=== PATIENT | male | born 1945 | race Caucasian/White ===

== ENCOUNTER 2019-05-06 13:16 | Inpatient (IN) | payer MEDICARE ==
[~2019-05-06] VITALS: Ht 182.9 cm; Wt 107.2 kg
--- OUTSIDE RECORDS SUMMARY | 2019-05-06 13:18 | XMS REPORT ---
Author [facility] Address Unknown Phone Unavailable Care Team Providers Care Satellite Communications Engineer Name Role Phone Unavailable Unavailable Payers Payer Name Policy Type Policy Number Effective Date Expiration Date Problems This patient has no known problems. Allergies, Adverse Reactions, Alerts Allergy Name Allergy Type Status Severity Reaction(s) Onset Date Inactive Date Treating Clinician Comments No Known Allergies DA Active U 2019-05-03 00:00:00 Medications This patient has no known medications. Results Test Description Test Time Test Comments Text Results Atomic Results Result Comments BASIC METABOLIC PANEL 2019-05-03 13:15:00 SODIUM (test code=NA) 141 mmol/L 136-145 POTASSIUM (test code=K) 4.6 mmol/L 3.5-5.1 CHLORIDE (test code=CL) 114.0 mmol/L 98-107 CARBON DIOXIDE (test code=CO2) 15.0 mmol/L 21-32 ANION GAP (test code=GAP) 16.6 10-20 GLUCOSE (test code=GLU) 118 mg/dL 74-106 BLOOD UREA NITROGEN (test code=BUN) 93 mg/dL 7-18 GLOMERULAR FILTRATION RATE (test code=GFR) 24 mL/min >=60 Estimated GFR by using Modified MDRD formula.Chronic kidney disease is defined as either kidney damageor GFR <60 mL/min/1.73 m2 for >3 months. CREATININE (test code=CREAT) 2.60 mg/dL 0.7-1.3 BUN/CREATININE RATIO (test code=BUN/CREA) 35.8 10-20 CALCIUM (test code=CA) 8.9 mg/dL 8.5-10.1 BASIC METABOLIC [id number] 13:05:00* Test Item Value Reference Range Comments SODIUM (test code=NA) 141 mmol/L 136-145 POTASSIUM (test code=K) 4.6 mmol/L 3.5-5.1 CHLORIDE (test code=CL) 114.0 mmol/L 98-107 CARBON DIOXIDE (test code=CO2) mmol/L 21-32 ANION GAP (test code=GAP) 10-20 GLUCOSE (test code=GLU) mg/dL 74-106 BLOOD UREA NITROGEN (test code=BUN) mg/dL 7-18 GLOMERULAR FILTRATION RATE (test code=GFR) mL/min >=60 CREATININE (test code=CREAT) mg/dL 0.7-1.3 BUN/CREATININE RATIO (test code=BUN/CREA) 10-20 CALCIUM (test code=CA) mg/dL 8.5-10.1 CBC W/AUTO [id number] 12:50:00* Test Item Value Reference Range Comments WHITE BLOOD CELL (test code=WBC) 9.8 K/mm3 4.5-12.5 RED BLOOD CELL (test code=RBC) 3.47 mill/mm3 4.0-5.8 HEMOGLOBIN (test code=HGB) 9.3 gram/dL 13.0-17.5 HEMATOCRIT (test code=HCT) 31.1 % 42.0-52.0 MEAN CELL VOLUME (test code=MCV) 89.6 fL 80-98 MEAN CELL HGB (test code=MCH) 26.8 picogram 27.0-33.0 MEAN CELL HGB CONCETRATION (test code=MCHC) 29.9 gram/dL 33.0-36.0 RED CELL DISTRIBUTION WIDTH (test code=RDW) 15.6 % 11.6-16.2 RED CELL DISTRIBUTION WIDTH SD (test code=RDW-SD) 50.6 fL 37.0-51.0 PLATELET COUNT (test code=PLT) 411 K/mm3 150-450 MEAN PLATELET VOLUME (test code=MPV) 9.0 fL 6.7-11.0 NEUTROPHIL % (test code=NT%) 71.4 % 39.0-69.0 IMMATURE GRANULOCYTE % (test code=IG%) 0.3 % 0.0-5.0 LYMPHOCYTE % (test code=LY%) 20.7 % 25.0-55.0 MONOCYTE % (test code=MO%) 4.9 % 0.0-10.0 EOSINOPHIL % (test code=EO%) 2.3 % 0.0-5.0 BASOPHIL % (test code=BA%) 0.4 % 0.0-1.0 NUCLEATED RBC % (test code=NRBC%) 0.0 % 0-0 NEUTROPHIL # (test code=NT#) 6.99 K/mm3 1.8-7.7 IMMATURE GRANULOCYTE # (test code=IG#) 0.03 x10 3/uL 0-0.03 LYMPHOCYTE # (test code=LY#) 2.03 K/mm3 1.0-5.0 MONOCYTE # (test code=MO#) 0.48 K/mm3 0-0.8 EOSINOPHIL # (test code=EO#) 0.23 K/mm3 0.0-0.5 BASOPHIL # (test code=BA#) 0.04 K/mm3 0.0-0.2 NUCLEATED RBC # (test code=NRBC#) 0.00 K/mm3 0.0-0.1
[2019-05-06] MEDS ORDERED: AMPICILLIN SOD/SULBACTAM 3GM 100 ML IV ONE (14:00)
[2019-05-06] MEDS ORDERED: SODIUM CHLORIDE FLUSH 10 ML SYR INJ PRN (14:00)
[2019-05-06 14:15] LABS: BASOPHILS % 0.2 % (0.0-1.0); EOSINOPHILS # (AUTO) 0.1 (0.0-0.4); EOSINOPHILS % 0.5 % (0.0-6.0); HEMATOCRIT 30.9 % (38.2-49.6); HEMOGLOBIN 9.6 g/dL (14.0-18.0); LYMPHOCYTES # (AUTO) 0.9 (1.0-3.2); LYMPHOCYTES % 4.9 % (18.0-39.1); MEAN CORPUSCULAR HEMOGLOBIN 27.5 pg (28-32); MEAN CORPUSCULAR HGB CONC 31.1 g/dL (31-35); MEAN CORPUSCULAR VOLUME 88.5 fL (81-99); MONOCYTES # (AUTO) 0.4 (0.2-0.8); MONOCYTES % 2.5 % (4.4-11.3); NEUTROPHILS % 91.5 % (38.7-80.0); PLATELET COUNT 364 x10e3/uL (140-360); RED BLOOD COUNT 3.49 x10e6/uL (4.3-5.7); RED CELL DISTRIBUTION WIDTH 15.6 % (11.7-14.4)
[2019-05-06 14:33] LABS: ALBUMIN 3.1 g/dL (3.5-5.0); ALBUMIN/GLOBULIN RATIO 0.6 (0.8-2.0); ANION GAP 17.8 mmol/L (8-16); CREATININE, SERUM 2.09 mg/dL (0.72-1.25); POTASSIUM 3.8 mmol/L (3.5-5.1)
--- NOTE | 2019-05-06 15:18 | Diagnostic Imaging Report ---
EXAMINATION: FOOT TWO VIEWS BILATERAL INDICATION: Foot ulcer COMPARISON: None FINDINGS: Right foot: No acute fracture or dislocation. Alignment appears anatomic. No specific findings of osteomyelitis. Achilles enthesopathy, small plantar calcaneal spur. Mild scattered degenerative changes. Left foot: No acute fracture or dislocation. Alignment appears anatomic. No specific findings of osteomyelitis. Achilles enthesopathy, small plantar calcaneal spur. Mild scattered degenerative changes. IMPRESSION: No acute osseous injury. No specific radiographic evidence of osteomyelitis. Signed by: Luis Dahl MD on 05/06/2019 3:16 PM
[2019-05-06] MEDS: LINEZOLID 600 MG/D5W 300ML 300 ML IV SCH (18:07)
[2019-05-06] MEDS: CEFTRIAXONE SOD 1 GM/NS 50 ML 50 ML IV SCH (18:07)
[2019-05-06 19:00] LABS: INR 2.55; PROTHROMBIN TIME 29.4 seconds (11.9-14.5)
[2019-05-06 19:01] LABS: PARTIAL THROMBOPLASTIN TIME 47.5 seconds (23.8-35.5)
[2019-05-06] MEDS ORDERED: AMPICILLIN SOD/SULBACTAM 3GM 100 ML IV SCH (20:00)
[2019-05-06 22:12] LABS: BILIRUBIN,URINE NEGATIVE (NEGATIVE); CLARITY,URINE CLEAR (CLEAR); COLOR,URINE YELLOW (YELLOW); KETONES,URINE NEGATIVE (NEGATIVE); LEUKOCYTE ESTERASE ,URINE NEGATIVE (NEGATIVE); NITRITE,URINE NEGATIVE (NEGATIVE); PROTEIN,URINE DIPSTICK NEGATIVE (NEGATIVE); URINE UROBILINOGEN 0.2 mg/dL (0.2 - 1)
[2019-05-06 22:22] LABS: BACTERIA,URINE MODERATE /HPF; HYALINE CASTS 0-1 (0-1); RBC,URINE 0-5 /HPF (0-5)
--- NOTE | 2019-05-06 22:54 | Consultation ---
DATE OF CONSULTATION: HISTORY OF PRESENT ILLNESS: Mr. Norman is a 73-year-old, who has a history of bilateral lower extremities lymphedema, venous stasis ulcers. He has been followed by Wound Care. The patient comes in with redness and swelling of his legs bilateral with open wounds and open ulcers, which are oozing serosanguineous fluid. It has been getting progressively worse over the last few days. The patient went to the ER at [place]. He was sent home with oral antibiotic, but he is coming back here with worsening condition and white count 17.4. The patient is going to be admitted. PAST MEDICAL HISTORY: Obesity, bilateral lower extremities edema. He does have chronic kidney disease. He have diabetes mellitus. PAST SURGICAL HISTORY: Denies. ALLERGIES: NKA. SOCIAL HISTORY: There is no smoking, drug abuse, or alcohol abuse. FAMILY HISTORY: Otherwise hypertension. REVIEW OF SYSTEMS: At the present time HEENT negative, pulmonary negative, cardiac negative, negative. SKIN: There is no rash, except the lower extremities. EXTREMITIES: There are redness and pain in the lower extremity as well as oozing fluid from some superficial wound. LABORATORY DATA: Reviewed. His cultures are still pending. Sodium 139, potassium 3.8, creatinine of 2.09, total protein 8.3 with albumin to 5.2. His white count 17.45 with hemoglobin 9.6, and platelets 346. PHYSICAL EXAMINATION: GENERAL: He is currently alert, oriented, does not seem to be in acute distress. VITAL SIGNS: Stable, currently afebrile. HEENT: Normocephalic, not icteric. NECK: Supple. CHEST: Clear bilateral. HEART: S1, S2. No S3, S4, or murmur. ABDOMEN: Soft. Bowel sounds present. No tenderness. EXTREMITIES: Bilateral lower extremities, there is erythema, there is edema bilateral with open wound. Some of these ulcers are superficial. IMPRESSION: Bilateral lower extremity cellulitis, bilateral lower extremity lymphedema, venous stasis dermatitis with ulcers and infected; concerned about component of congestive heart failure. I would recommend to put the patient on probably [id number]. We would recommend to put the patient on Zyvox and Rocephin, thigh-high elastic stocking. Recheck CBC. Recheck Chem panel. Assess the patient for congestive heart failure and fluids overload. We will follow with you. MD MAI Pickens/ALLISON /[id number]
--- NOTE | 2019-05-07 | NUR ---
Pt repositioned in bed for comfort, no other needs at this time.
--- NOTE | 2019-05-07 03:33 | NUR ---
Pt repositioned in bed for comfort, no other needs at this time.
--- NOTE | 2019-05-07 06:20 | NUR ---
AM Labs drawn at this time, taken to lab for analysis.
[2019-05-07] MEDS: LINEZOLID 600 MG/D5W 300ML 300 ML IV SCH ×2 (06:22→16:49)
[2019-05-07 06:38] LABS: BASOPHILS % 0.2 % (0.0-1.0); EOSINOPHILS # (AUTO) 0.1 (0.0-0.4); EOSINOPHILS % 0.5 % (0.0-6.0); HEMATOCRIT 25.3 % (38.2-49.6); LYMPHOCYTES % 7.9 % (18.0-39.1); MEAN CORPUSCULAR HGB CONC 30.8 g/dL (31-35); MEAN CORPUSCULAR VOLUME 87.5 fL (81-99); MONOCYTES # (AUTO) 0.6 (0.2-0.8); MONOCYTES % 4.4 % (4.4-11.3); NEUTROPHILS # (AUTO) 10.9 (2.1-6.9); NEUTROPHILS % 86.5 % (38.7-80.0); PLATELET COUNT 300 x10e3/uL (140-360); RED BLOOD COUNT 2.89 x10e6/uL (4.3-5.7); RED CELL DISTRIBUTION WIDTH 15.4 % (11.7-14.4)
[2019-05-07 06:43] LABS: HEMOGLOBIN 7.8 g/dL (14.0-18.0)
[2019-05-07 06:57] LABS: ALBUMIN 2.5 g/dL (3.5-5.0); ALBUMIN/GLOBULIN RATIO 0.6 (0.8-2.0); ANION GAP 13.6 mmol/L (8-16); CALCIUM 8.1 mg/dL (8.4-10.2); CREATININE, SERUM 1.86 mg/dL (0.72-1.25); POTASSIUM 3.6 mmol/L (3.5-5.1)
[2019-05-07 07:07] LABS: PHOSPHORUS 2.7 MG/DL (2.3-4.7)
[2019-05-07 07:13] LABS: MAGNESIUM 1.1 MG/DL (1.3-2.1)
[2019-05-07] MEDS ORDERED: MAGNESIUM SULF 1GRAM/DEXTROSE 100 ML IV ONE ×2 (08:00→14:15)
[2019-05-07] MEDS ORDERED: XARELTO20 MG PO (12:09)
[2019-05-07] MEDS ORDERED: FUROSEMIDE40 MG PO (12:09)
[2019-05-07] MEDS ORDERED: CANDESARTAN CIL32 MG PO (12:09)
[2019-05-07] MEDS ORDERED: POTASSIUM CHLO20 ME1 PO (12:09)
[2019-05-07] MEDS ORDERED: ATORVASTATIN CA40 MG PO (12:09)
[2019-05-07] MEDS ORDERED: METOPROLOL SUC100 MG PO (12:09)
[2019-05-07] MEDS ORDERED: METFORMIN HCL500 M1 PO (12:09)
[2019-05-07 14:02] VITALS: BP 116/56
[2019-05-07 14:18] VITALS: BP 116/56
--- NOTE | 2019-05-07 14:20 | NUR ---
RECEIVED PATIENT FROM ER TO ROOM 284, PATIENT IS IN STABLE CONDITION. ADMISSION HISTORY AND INITIAL PHYSICAL ASSESSMENT COMPLETED AND DOCUMENTED. PATIENT ORIENTED TO ROOM AND POLICIES. CALL LIGHT WITHIN REACH. BED IN THE LOWEST POSITION.
[2019-05-07 14:27] VITALS: BP 116/56
[2019-05-07] MEDS ORDERED: NON-FORMULARY MEDICATION (Metoprolol Succinate 100 MG) PO SCH (15:00)
[2019-05-07] MEDS ORDERED: CANDESARTAN CILEXETIL 32 MG PO SCH (15:00)
[2019-05-07] MEDS ORDERED: RIVAROXABAN 20 MG TABLET PO SCH (15:00)
[2019-05-07] MEDS ORDERED: NON-FORMULARY MEDICATION (Atorvastatin Calcium 40 MG) PO SCH (15:00)
[2019-05-07] MEDS ORDERED: ONDANSETRON HCL INJ 2MG/ML 2ML 2 MG/ML VIAL IV PRN (15:15)
[2019-05-07] MEDS ORDERED: ACETAMINOPHEN 325 MG TAB PO PRN (15:15)
[2019-05-07] MEDS ORDERED: DEXTROSE 50% SYRINGE 50 ML IV PRN (15:15)
[2019-05-07] MEDS ORDERED: HYDRALAZINE HCL 20 MG/ML VIAL IV PRN (15:15)
[2019-05-07] MEDS ORDERED: SODIUM CHLORIDE 0.9% 250ML 250 ML ONE (15:52)
[2019-05-07 16:00] VITALS: BP 121/57
[2019-05-07] MEDS: INSULIN REGULAR, HUMAN 100 UNIT/1 ML 3ML VIAL SQ SCH ×2 (16:04→21:00)
[2019-05-07] MEDS: POTASSIUM CHLORIDE 20 MEQ TAB CR PO SCH (16:08)
[2019-05-07] MEDS: METOPROLOL SUCCINATE 50 MG TAB XL PO SCH (16:09)
[2019-05-07] MEDS: FUROSEMIDE 40 MG TAB PO SCH (16:09)
[2019-05-07] MEDS: CEFTRIAXONE SOD 1 GM/NS 50 ML 50 ML IV SCH (16:09)
[2019-05-07] MEDS: ATORVASTATIN 40 MG TAB PO SCH (16:09)
[2019-05-07] MEDS ORDERED: FAMOTIDINE 20 MG TAB PO SCH (16:30)
[2019-05-07] MEDS ORDERED: CANDESARTAN CILEXETIL 16 MG TAB PO SCH (16:30)
[2019-05-07 19:00] VITALS: BP 90/53
--- NOTE | 2019-05-07 19:19 | NUR ---
BEDSIDE SHIFT REPORT GIVEN TO ONCOMING NURSE, PATIENT IS IN STABLE CONDITION. NO ACUTE DISTRESS NOTED AT THIS TIME. CALL LIGHT WITHIN REACH. BED IN THE LOWEST POSITION.
[2019-05-07 20:00] VITALS: BP 90/53
[2019-05-08] VITALS (9 sets, daily range): BP systolic 91–108; BP diastolic 49–56
[2019-05-08] MEDS: LINEZOLID 600 MG/D5W 300ML 300 ML IV SCH ×2 (04:39→16:18)
[2019-05-08] MEDS ORDERED: SODIUM CHLORIDE 0.9% 500ML 500 ML IV ONE (05:45)
--- NOTE | 2019-05-08 05:45 | NUR ---
Gabriela [employer] here on unit. Discussed BP 98/54, 80 and patient has bp meds ordered this am without parameters. Give toprol XL and lasix this morning, Will D/C Acacand. Will order NS 500cc bolus x1.
[2019-05-08] MEDS: FAMOTIDINE 20 MG TAB PO SCH ×2 (05:55→12:16)
[2019-05-08] MEDS: FUROSEMIDE 40 MG TAB PO SCH ×2 (05:55→12:16)
[2019-05-08] MEDS: POTASSIUM CHLORIDE 20 MEQ TAB CR PO SCH ×2 (05:55→12:16)
[2019-05-08] MEDS: ATORVASTATIN 40 MG TAB PO SCH (05:55)
[2019-05-08] MEDS: METOPROLOL SUCCINATE 50 MG TAB XL PO SCH (05:55)
[2019-05-08] MEDS ORDERED: SODIUM CHLORIDE 0.9% 500ML 500 ML ONE (05:56)
[2019-05-08 06:02] LABS: BASOPHILS % 0.3 % (0.0-1.0); EOSINOPHILS # (AUTO) 0.2 (0.0-0.4); EOSINOPHILS % 3.3 % (0.0-6.0); HEMATOCRIT 23.4 % (38.2-49.6); HEMOGLOBIN 7.3 g/dL (14.0-18.0); LYMPHOCYTES # (AUTO) 1.4 (1.0-3.2); LYMPHOCYTES % 19.8 % (18.0-39.1); MEAN CORPUSCULAR HGB CONC 31.2 g/dL (31-35); MEAN CORPUSCULAR VOLUME 86.7 fL (81-99); MONOCYTES # (AUTO) 0.5 (0.2-0.8); MONOCYTES % 7.2 % (4.4-11.3); NEUTROPHILS % 69.1 % (38.7-80.0); PLATELET COUNT 295 x10e3/uL (140-360); RED CELL DISTRIBUTION WIDTH 15.6 % (11.7-14.4)
[2019-05-08 06:33] LABS: ANION GAP 10.2 mmol/L (8-16); CALCIUM 7.9 mg/dL (8.4-10.2); CREATININE, SERUM 2.14 mg/dL (0.72-1.25); MAGNESIUM 1.4 MG/DL (1.3-2.1); POTASSIUM 3.2 mmol/L (3.5-5.1)
--- NOTE | 2019-05-08 06:50 | NUR ---
RECEIVED BEDSIDE SHIFT REPORT FROM OFF GOING NURSE. PATIENT IS RESTING IN BED, NO ACUTE DISTRESS NOTED. CALL LIGHT WITHIN REACH. BED IN THE LOWEST POSITION.
--- NOTE | 2019-05-08 07:15 | NUR ---
Bedside report and walking rounds completed with oncoming nurse. Patient in bed resting, no issues or concerns note. Call light within reach and instructed to use call light for assistance.
[2019-05-08] MEDS: INSULIN REGULAR, HUMAN 100 UNIT/1 ML 3ML VIAL SQ SCH ×6 (07:30→22:49)
--- NOTE | 2019-05-08 07:38 | NUR ---
Paged Dr Clements regarding New consult for Bilateral heel ulcers.
--- NOTE | 2019-05-08 07:41 | NUR ---
Return call for Dr Clements regarding new consult for bilateral heel ulcer. Will see patient.
[2019-05-08] MEDS ORDERED: POTASSIUM CHLORIDE 20 MEQ TAB CR PO ONE (08:25)
--- NOTE | 2019-05-08 12:15 | NUR ---
DISCUSSED THE PT IN MDR. PT HAS A AT [facility] AND IS NOT DOING WELL AND PT WOULD LIKE TO GO TO BE W HER. ORDER RECEIVED FOR HOME HEALTH. MET W THE PT AT THE BEDSIDE TO DISCUSS HH. PT STATES HE IS AOS W AN AGENCY, BUT DOES NOT REMEMBER THE NAME. STATES HIS DTR, VERNON, HAS THE INFO. STATES HE WILL CALL HER AFTER SHE GETS OFF OR TRY TEXTING HER CM'S INFO. CM GAVE PT BUSINESS CARD.
--- NOTE | 2019-05-08 13:46 | NUR ---
CALL RECEIVED FROM VERNON; PT'S DTR. STATES HE IS ON SERVICE W [facility] @ [phone] / FAX: [phone]. CM CALLED TO VERIFY; SPOKE W GLENROY. IMM LETTER EXPLAINED TO PT. PT VERBALIZED UNDERSTANDING. IMM LETTER SIGNED. COPY TO PT AND COPY TO CHART.
--- NOTE | 2019-05-08 15:13 | NUR ---
WOUND CARE CONSULT FOR 73 YO MALE HX OF DIABETES LEANDER 20 ON CONSERVATIVE PUP STATUS AND INTERVENTIONS AND VISCO MATTRESS LABS: WBC-12.56 HGB_ 7.8 GLUCOSE-110 CUXK5C-4.8 SKIN ASSESSMENT COMPLETE PATIENT PRESENTS WITH BILATERAL LOWER LEG ULCERATIONS RECOMMENDATIONS: NURSING TO CONTINUE TO MAINTAIN CONSERVATIVE PUP STATUS AND INTERVENTIONS AND VISCO_ MATTRESS NURSING TO CONTINUE TO ASSIST PATIENT OUT OF BED FOR MEALS AND MUCH TOLERATED NURSING TO CONTINUE TO ASSIST PATIENT NEEDED WITH MEALS AND NUTRITIONAL SUPPLEMENTS TO ENSURE PROPER REQUIREMENTS FOR HEALING NURSING TO CONTINUE TO OFFLOAD FEET AND HEELS NEEDED WITH PILLOW SUSPENSION WHEN IN BED MD ORDERS IN PLACE FOR ULCERATIONS TO BILATERAL PLANTAR SURFACE WOUNDS RECOMENDATIONS FOR PARTIAL THICKNESS LOWER LEG WOUNDS IS FOLLOWS: NURSING TO CLEAN BILATERAL LOWER LEG PARTIAL THICKNESS WOUNDS WITH NS APPLY COLLAGEN (PURACOL ) TO WOUND BASE EVERY OTHER DAY Addendum: 05/08/19 at 1522 by Moy Hernandez RN Amended: Links added.
[2019-05-08] MEDS: CEFTRIAXONE SOD 1 GM/NS 50 ML 50 ML IV SCH (15:34)
[2019-05-08] MEDS: RIVAROXABAN 20 MG TABLET PO SCH (15:34)
--- NOTE | 2019-05-08 15:37 | Consultation ---
DATE OF CONSULTATION: Wound Consultation HISTORY OF PRESENT ILLNESS: A 73-year-old male patient came to the hospital with open wound to both heel and wound on the bilateral anterior leg and posterior calf, nonhealing. The patient was initially seen at [facility] and was sent home with antibiotics. Wound was getting worse so he came. He lives by himself. is in the hospital at [facility], critical and dying. His white count is 17,000. The patient has bilateral heel ulcers. He sits in wheelchair all day, causing pressure to the heel. Also, he scratched both legs and sustained skin tear to both legs with nonhealing wound and multiple small ulcers on the left leg noted as well. Fluid oozing from the wound on the left calf. The patient admitted for treatment due to failed outpatient treatment. PAST MEDICAL HISTORY: Diabetes mellitus, venous insufficiency, hypertension, and hyperlipidemia. MEDICATIONS: Atorvastatin 40 mg daily, Lasix 40 mg b.i.d., metoprolol 100 mg daily, insulin, and Xarelto 20 mg daily. PERSONAL HISTORY: Smoked for 15 years, stopped smoking 10 years back. ALLERGIES: NONE. PAST SURGICAL HISTORY: Nothing. PHYSICAL EXAMINATION: VIAL SIGNS: Blood pressure 98/49, pulse 80, and temperature 98.4. Height is 6 feet, weight 236 pounds, BMI 32. HEENT: Normal. NECK: No JVD. LUNGS: Bilateral air entry diminished. CVS: Normal. ABDOMEN: Soft and nontender. LOWER EXTREMITIES: Bilateral lower extremity edema present with chronic venous stasis seen. Pigmentation to both legs noted. On both legs, the patient has wound below the knee and the tibial area. Full-thickness skin tear with a cellulitis. Bilateral heel, the patient has pressure ulcer, stage 3, 70% pink, 30% slough. Some bleeding noted. ASSESSMENT: Bilateral heel pressure ulcers, bilateral anterior leg traumatic ulcer from scratching and skin tear, and calf ulcer from venous insufficiency. PLAN: I discussed with the patient to avoid putting pressure on the heel. Have to wear offloading. Recommended Hydrogel, Adaptic, Kerlix, and Coban for compression and offload. Thank you for consultation. We will follow up. Ceferino Clements MD TG/MODL /[id number]
--- NOTE | 2019-05-08 19:21 | NUR ---
BEDSIDE SHIFT REPORT GIVEN TO ONCOMING NURSE. PATIENT IS RESTING IN BED. NO ACUTE DISTRESS NOTED. CALL LIGHT WITHIN REACH. BED IN THE LOWEST POSITION.
[2019-05-09 00:37] VITALS: BP 149/98
[2019-05-09 03:34] LABS: BASOPHILS % 0.4 % (0.0-1.0); EOSINOPHILS # (AUTO) 0.3 (0.0-0.4); EOSINOPHILS % 3.4 % (0.0-6.0); HEMATOCRIT 26.3 % (38.2-49.6); LYMPHOCYTES # (AUTO) 1.6 (1.0-3.2); LYMPHOCYTES % 19.1 % (18.0-39.1); MEAN CORPUSCULAR HEMOGLOBIN 26.9 pg (28-32); MEAN CORPUSCULAR HGB CONC 30.4 g/dL (31-35); MEAN CORPUSCULAR VOLUME 88.6 fL (81-99); MONOCYTES # (AUTO) 0.5 (0.2-0.8); MONOCYTES % 6.4 % (4.4-11.3); NEUTROPHILS # (AUTO) 5.7 (2.1-6.9); NEUTROPHILS % 70.3 % (38.7-80.0); PLATELET COUNT 296 x10e3/uL (140-360); RED BLOOD COUNT 2.97 x10e6/uL (4.3-5.7); RED CELL DISTRIBUTION WIDTH 15.5 % (11.7-14.4)
[2019-05-09 03:51] LABS: ANION GAP 11.2 mmol/L (8-16); CALCIUM 8.4 mg/dL (8.4-10.2); CREATININE, SERUM 2.03 mg/dL (0.72-1.25); MAGNESIUM 1.5 MG/DL (1.3-2.1)
[2019-05-09 03:52] LABS: POTASSIUM 4.2 mmol/L (3.5-5.1)
[2019-05-09 04:12] LABS: FERRITIN 182.57 ng/mL (21.81-274.66)
[2019-05-09 04:47] VITALS: BP 98/54
[2019-05-09] MEDS: LINEZOLID 600 MG/D5W 300ML 300 ML IV SCH (05:11)
[2019-05-09] MEDS: POTASSIUM CHLORIDE 20 MEQ TAB CR PO SCH (07:07)
[2019-05-09] MEDS: ATORVASTATIN 40 MG TAB PO SCH (07:08)
[2019-05-09] MEDS: FUROSEMIDE 40 MG TAB PO SCH (07:08)
[2019-05-09] MEDS: FAMOTIDINE 20 MG TAB PO SCH (07:08)
[2019-05-09] MEDS: METOPROLOL SUCCINATE 50 MG TAB XL PO SCH (07:09)
--- NOTE | 2019-05-09 07:19 | NUR ---
bedside shift report received from table games shift manager RN. pt awake, alert, no complaints at this time. no signs of distress.
[2019-05-09 07:30] VITALS: BP 98/54
--- NOTE | 2019-05-09 07:46 | NUR ---
machado discontinued, tip intact, 100 ml clear orange-colored urine output noted. pt tolerated well. Addendum: 05/09/19 at 0936 by Francis Betancourt RN disregard note, entered in error on wrong patient.
[2019-05-09 08:00] VITALS: BP 119/58
[2019-05-09] MEDS: RIVAROXABAN 20 MG TABLET PO SCH (09:58)
--- NOTE | 2019-05-09 10:00 | NUR ---
KRISTYN called and spoke to Josias with [facility]. He states that he received clinicals from [place] yesterday, but requesting note from wound care doctor. KRISTYN informed him that pt is discharging today. He states they will be able to see pt tomorrow. Wound care MD's note was faxed.
[2019-05-09] MEDS ORDERED: DOXYCYCLINE HY100 MG PO (10:25)
--- NOTE | 2019-05-10 01:54 | Discharge Summary ---
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 HISTORY: Bilateral lower extremity lymphedema, venous stasis, obesity with BMI of 32.5, CKD stage 3, AFib, hyperlipidemia. SURGICAL HISTORY: Femoral-popliteal bypass in 2009. FAMILY HISTORY: The patient's mother, father, and sister had diabetes. SOCIAL HISTORY: Noncontributory. HOSPITAL COURSE: A 73-year-old male admitted to the ER with redness and swelling of bilateral lower extremities with open ulcers of both of his heels. He says that they have progressively gotten worse over the last few days to few weeks. He went to the ER at [facility] and was sent home on oral antibiotics. On admission, ID was consulted. The patient was placed on Unasyn and Zyvox as well as Rocephin. Bilateral lower extremity Dopplers were negative for PAD. X-ray was negative for osteomyelitis. Echo showed an EF of about 50%. Blood cultures were negative. Per ID recommendation, the patient will discharge home with doxycycline for 14 weeks. Wound Care was also consulted, who recommended Hydrogel, Adaptic, Kerlix, and Coban for compression and offloading. The patient says that his is in hospice and is not expected to live much longer, so he is very adamant about going home as soon as possible. The patient understands discharge instructions and agrees to plan. He will follow up with wound care and primary care in 1 to 2 weeks. Dictated by Gabriela Baeza NP Melchor Magana MD NISREEN/MODL /[id number]
== END 2019-05-09 11:20 | disposition home or self-care (01) | DRG 872 ==
LOC: ER 13:16 → ERHOLD 14:00 → MED/SURG3 05-07 13:47
PROVIDERS: ADMIT Internal Medicine; ATTEND Internal Medicine
DX: A41.9 Sepsis, unspecified organism (principal); L03.115 Cellulitis of right lower limb; L03.116 Cellulitis of left lower limb; N17.9 Acute kidney failure, unspecified; I48.20 Chronic atrial fibrillation, unspecified; E87.0 Hyperosmolality and hypernatremia; E87.1 Hypo-osmolality and hyponatremia; L97.428 Non-pressure chronic ulcer of left heel and midfoot with other specified severity; L97.418 Non-pressure chronic ulcer of right heel and midfoot with other specified severity; L97.828 Non-pressure chronic ulcer of other part of left lower leg with other specified severity; L97.818 Non-pressure chronic ulcer of other part of right lower leg with other specified severity; N18.3 Chronic kidney disease, stage 3 (moderate); E78.5 Hyperlipidemia, unspecified; E83.42 Hypomagnesemia; I87.2 Venous insufficiency (chronic) (peripheral); Z87.891 Personal history of nicotine dependence; E66.9 Obesity, unspecified; Z68.32 Body mass index [BMI] 32.0-32.9, adult; I89.0 Lymphedema, not elsewhere classified; R26.9 Unspecified abnormalities of gait and mobility; E11.621 Type 2 diabetes mellitus with foot ulcer; Z79.4 Long term (current) use of insulin
CPT/HCPCS: 36415; 80048; 80053; 81001; 82607; 82728; 82746; 82948; 83036; 83540; 83605; 83735; 84100; 84443; 84466; 85025; 85610; 85730; 87040; 87086; 93306; 93925; 99285; J0696; J1817; J2020; J3475; J7040; J7050